=== PATIENT | female | born 1965 | race Caucasian/White ===

== ENCOUNTER 2020-06-03 15:20 | Emergency (ER) | payer OTHER ==
[~2020-06-03] VITALS: Ht 154.9 cm; Wt 59.0 kg
[2020-06-03 15:33] VITALS: BP 142/70
--- NOTE | 2020-06-03 15:40 | NUR ---
PT W/C ASSISTED TO BED 1.
[2020-06-03] MEDS ORDERED: ONDANSETRON 4 MG/2 ML VIAL IVP ONE (15:50)
[2020-06-03] MEDS ORDERED: NACL 0.9% 1,000 ML IV ONE (15:50)
--- NOTE | 2020-06-03 16:00 | NUR ---
JEFF AVERY AT BEDSIDE EVALUATING PT.
--- NOTE | 2020-06-03 16:20 | NUR ---
C/O FEVER , DIARRHEA 4 EPISODES X TODAY, COUGH X 3 DAYS, MID CHEST PAIN X YESTERDAY. COVID TESTED LAST WEEK NEGATIVE.PT AOX4 , AFIBRILE , AMBULATORY WITH STEADY GAIT , PINK PALPEBRAL CONJUNCTIVA , ANICTERIC SCLERA ,MOIST ORAL CAVITY , SCE , FLAT SOFT ABDOMEN , GOOD SKIN TURGOR. MED HX: DENIES
[2020-06-03 16:22] LABS: BASOPHILS % (AUTO) 0.5 % (0.0-2.0); EOSINOPHILS % (AUTO) 0.1 % (0.0-4.0); HEMATOCRIT 38.4 % (36-48); HEMOGLOBIN 12.6 g/dL (12.0-16.0); LYMPHOCYTES % (AUTO) 22.4 % (20.5-51.1); MEAN CORPUSCULAR HEMOGLOBIN 30 pg (27-31); MEAN CORPUSCULAR HGB CONC 33 g/dL (33-37); MEAN CORPUSCULAR VOLUME 91.5 fL (80-94); MONOCYTES # (AUTO) 0.3 K/uL (0.8-1.0); PLATELET COUNT (AUTO) 126 K/uL (140-450); RED CELL DISTRIBUTION WIDTH 14.3 % (11.6-13.7); WHITE BLOOD COUNT (AUTO) 4.4 K/uL (4.8-10.8)
--- NOTE | 2020-06-03 16:29 | NUR ---
xray at bedside
[2020-06-03 16:35] LABS: ALBUMIN 3.5 g/dL (3.4-5.0); CARBON DIOXIDE 24.1 mmol/L (21-32); CREATININE 0.8 mg/dL (0.6-1.3); POTASSIUM 4.1 mmol/L (3.5-5.1); TOTAL BILIRUBIN 0.4 mg/dL (0.0-1.0)
--- NOTE | 2020-06-03 17:04 | NUR ---
JEFF AVERY AT BEDSIDE REEVALUATING PT.
--- NOTE | 2020-06-03 17:20 | NUR ---
covid test done and sent to lab.
[2020-06-03 17:29] VITALS: BP 142/70
--- NOTE | 2020-06-03 17:30 | NUR ---
Patient discharged with v/s stable. Written and verbal after care instructions given and explained regarding covid 19 . Patient alert, oriented and verbalized understanding of instructions. Ambulatory with steady gait. All questions addressed prior to discharge. ID band removed. Patient advised to follow up with PMD. Rx of albuterol , doxcycline , naprosyn and zofran given. Patient educated on indication of medication including possible reaction and side effects. Opportunity to ask questions provided and answered.
== END 2020-06-03 17:30 | disposition home or self-care (01) ==
LOC: MED 15:20
DX: U07.1 COVID-19 (principal)
CPT/HCPCS: 36415; 71045; 80053; 81025; 85025; 93005; 96361; 96374; 99285; J2405; J7030; Q0092; U0003; 81002

== ENCOUNTER 2020-06-05 14:41 | Emergency (ER) | payer OTHER, SELFPAY ==
[~2020-06-05] VITALS: Ht 154.9 cm; Wt 59.0 kg
[2020-06-05 14:55] VITALS: BP 133/84
--- NOTE | 2020-06-05 14:55 | NUR ---
PT W/C ASSISTED TO BED 3.
--- NOTE | 2020-06-05 15:14 | NUR ---
55 Y/O FEMALE TESTED POSITIVE FOR COVID WEDNESDAY AND TODAY BEGAN HAVING VOMITING/NAUSEA, PT STATES SHE CANNOT KEEP ANYTHING FOOD OR DRINK DOWN. DENIES ANY SOB OR CHEST PAIN. RESP EVEN AND UNLABORED. PT STATES SHE HAS A FEVER, BUT HAS NOT TAKEN ANY TYLENOL TODAY. BOWEL SOUNDS NORMOACTIVE IN ALL QUADRANTS. ABD SOFT/ NON TENDER AND NON DISTENDED
[2020-06-05] MEDS ORDERED: NACL 0.9% 1,000 ML IV SCH (15:17)
[2020-06-05] MEDS ORDERED: ONDANSETRON 4 MG/2 ML VIAL IVP ONE (15:20)
[2020-06-05] MEDS ORDERED: FAMOTIDINE 20 MG/2 ML VIAL IVP ONE (15:20)
[2020-06-05] MEDS ORDERED: DICYCLOMINE HCL LIQUID 20 MG, ALUMINUM HYD/MAG/SIMETHICONE 30 ML, LIDOCAINE VISCOUS 2% ... PO ONE ×3 (15:20)
[2020-06-05] MEDS ORDERED: ALUMINUM HYD/MAG/SIMETHICONE 30 ML UDC ONE (15:23)
[2020-06-05] MEDS ORDERED: DICYCLOMINE HCL LIQUID 10 MG/5 ML UDC ONE (15:23)
[2020-06-05] MEDS ORDERED: LIDOCAINE VISCOUS 2% 20 ML UDC ONE (15:23)
[2020-06-05 15:49] LABS: BASOPHILS # (AUTO) 0.1 K/uL (0.00-0.22); BASOPHILS % (AUTO) 0.8 % (0.0-2.0); HEMATOCRIT 40.5 % (36-48); HEMOGLOBIN 13.3 g/dL (12.0-16.0); LYMPHOCYTES # (AUTO) 0.7 K/uL (2.5-16.5); LYMPHOCYTES % (AUTO) 9.3 % (20.5-51.1); MEAN CORPUSCULAR HEMOGLOBIN 30 pg (27-31); MEAN CORPUSCULAR HGB CONC 33 g/dL (33-37); MEAN CORPUSCULAR VOLUME 90.1 fL (80-94); MONOCYTES # (AUTO) 0.3 K/uL (0.8-1.0); MONOCYTES % (AUTO) 4.5 % (1.7-9.3); NEUTROPHILS # (AUTO) 6.5 K/uL (1.8-7.7); NEUTROPHILS % (AUTO) 85.4 % (42.2-75.2); PLATELET COUNT (AUTO) 150 K/uL (140-450); RED BLOOD CELL COUNT(AUTO) 4.49 MIL/uL (4.20-5.40); RED CELL DISTRIBUTION WIDTH 14.5 % (11.6-13.7); WHITE BLOOD COUNT (AUTO) 7.6 K/uL (4.8-10.8)
[2020-06-05 16:09] LABS: ALBUMIN 3.9 g/dL (3.4-5.0); ANION GAP 18.6 (8-16); CARBON DIOXIDE 24.8 mmol/L (21-32); CREATININE 0.8 mg/dL (0.6-1.3); POTASSIUM 3.4 mmol/L (3.5-5.1); TOTAL BILIRUBIN 0.5 mg/dL (0.0-1.0)
--- NOTE | 2020-06-05 17:08 | NUR ---
Patient discharged with v/s stable. Written and verbal after care instructions given and explained. Patient verbalized understanding. Ambulatory with steady gait. All questions addressed prior to discharge. Advised to follow up with PMD.
[2020-06-05 17:09] VITALS: BP 125/79
== END 2020-06-05 17:08 | disposition home or self-care (01) ==
LOC: MED 14:41
DX: U07.1 COVID-19 (principal); R11.10 Vomiting, unspecified
CPT/HCPCS: 36415; 80053; 85025; 96374; 96375; 99284; J2405; J3490; J7030

== ENCOUNTER 2020-06-07 08:24 | Emergency (ER) | payer OTHER, SELFPAY ==
[~2020-06-07] VITALS: Ht 154.9 cm; Wt 59.0 kg
[2020-06-07 08:37] VITALS: BP 134/71
[2020-06-07] MEDS ORDERED: KETOROLAC 60 MG/2 ML VIAL IM ONE (09:30)
[2020-06-07] MEDS ORDERED: NACL 0.9% 1,000 ML IV ONE (09:55)
[2020-06-07 11:45] VITALS: BP 151/70
== END 2020-06-07 11:46 | disposition home or self-care (01) ==
LOC: MED 08:24
DX: U07.1 COVID-19 (principal); R05 Cough; R06.02 Shortness of breath
CPT/HCPCS: 71045; 93005; 96361; 96372; 99283; J1885; Q0092